=== PATIENT | male | born 2000 | race Two or more races ===

== ENCOUNTER 2024-04-11 08:45 | Outpatient (RCR) | payer MEDICAID, SELFPAY ==
--- NOTE | 2024-04-11 11:13 | PTNOTE_ITS ---
PT OP Initial Eval Patient Information Outpatient Physical Therapy Treatment Date: 04/11/24 Visit Reasons: BACK PAIN Medical Diagnosis: M54.32 Treatment Dx #1: Back Pain Start of Care: 04/11/24 Smoking Status Smoking Status: Never smoker Initial Assessment Subjective: Pt is a 23 y/o male reports of back and left LE radicular pain ~ 6 months ago. Pt denies of trauma or injury to the back. No imaging has been done thus far. Pt has limitation with standing, sitting, work duties, lifting, and performing recreational activities. Objective: L/S AROM: all motions are WFL Hip PROM: all motions are WFL Hip MMTs: grossly 4-/5 Palpation: TTP and hypomobile L3-L4 facet Assessment: Pt demonstrate back pain with mobility deficits leading to difficulty with ADLs. Pt will attempt physical therapy if pain persist Pt will be refer back to provider for further consultation. Short Term and Director Of Occupational Health Goals 1) Increase L/S AROM WNL in 6 wks to be able to perform chores 2) Decrease back pain to 2/10 in 6 wks to be able to sit and stand more than 30 mins 3) Increase core strength WFL in 6 wks to be able to perform recreational activities 4) Increase hip MMTs grossly to 4-/5 in 6 wks to be able to walk more than 30 mins 5) Indep with HEP Treatment Plan 1) Manual Therapy 2) Therapeutic Activities 3) Therapeutic Exercises 4) Modalities (ice, heat, traction) Frequency and Duration: 2 x wk for 6 wks Certification Dates: 04/11/24 to 07/12/24 Procedure Charges OP PT Eval Mod Complex 30 minutes: Yes
== END 2024-04-15 23:59 | disposition home or self-care (01) ==
LOC: CPTX 08:45
PROVIDERS: PCP Registered Nurse; Referring Provider Registered Nurse; Visit Provider Registered Nurse
DX: M54.9 Dorsalgia, unspecified (principal); M54.32 Sciatica, left side
CPT/HCPCS: 97162

== ENCOUNTER 2024-04-27 09:00 | Outpatient (RCR) | payer MEDICAID, SELFPAY ==
--- NOTE | 2024-04-18 11:28 | PT.ODAYNRPT ---
PT Outpatient Daily Note OP Daily Note Outpatient Physical Therapy Treatment Date: 04/18/24 Visit Reasons: Back pain Subjective: No pain to report at this time. Objective: Please see flow sheet for ther ex list. Assessment: L LE symptoms replicated with figure 4 stretch. Instructed pt with repeated lumbar extension L LE symptoms resolved. Pt encouraged to perform repeated lumbar extension for HEP. Plan: Assess response to HEP. Length of Time (minutes) of Treatment: 30 Minutes Procedure Charges Therapeutic Exercise 30 minutes: Yes
--- NOTE | 2024-04-20 10:55 | PT.ODAYNRPT ---
PT Outpatient Daily Note OP Daily Note Outpatient Physical Therapy Treatment Date: 04/20/24 Visit Reasons: Back pain Subjective: Pt's back pain is better. Pt notice less left LE pain lately. Objective: Please see flow chart for list of ther ex performed Assessment: tolerate exercises with minimal pain Plan: Continue with PT Length of Time (minutes) of Treatment: 30 Minutes Procedure Charges Therapeutic Exercise 30 minutes: Yes
--- NOTE | 2024-04-25 13:41 | PT.ODAYNRPT ---
PT Outpatient Daily Note OP Daily Note Outpatient Physical Therapy Treatment Date: 04/25/24 Visit Reasons: Back pain Subjective: Pt's back is better. Only concerns to report his when sometimes with running he notice back pain with intermittent pain down the left leg. Objective: Please see flow chart for list of ther ex performed Assessment: progress patient to more core exercises with good tolerance. nerve floss continues to help decrease referral pain down the legs Plan: Continue with PT Length of Time (minutes) of Treatment: 30 Minutes Procedure Charges Therapeutic Exercise 30 minutes: Yes
--- NOTE | 2024-04-27 09:33 | PT.ODS1RPT ---
PT OP Progress/Discharge Note Date of Service: 04/27/24 Progress Note/DC Note Progress Note/Discharge Note: DC Note Patient Information Visit Reasons: Back pain Medical Diagnosis: M54.32 Treatment Dx #1: Back Pain Service Discharge Date: 04/27/24 Status Subjective: Pt's back is a little better, however, continues to notice left LE pain. Pt has been able to resume ADLs, work duties, and ambulate with less limitation. Pt will like to stop physical therapy at this time and follow up with provider. Objective: L/S AROM: all motions are WNL Hip PROM: all motions are WNL Hip MMTs: grossly 4/5 Assessment: Pt demonstrate functional L/S mobility and strength, however, minimal changes with left radcular pain leading to difficulty with ADLs. Pt will no longer benefit from physical therapy due to minimal progress towards goals. Recommend lumbar spine MRI to help rule in/out nature of pain. Pt was instructed on HEP last session and educated to continue exercises to maintain overall mobility. Pt performed all exercises safely, thank you for your referrals. Plan: D/C home with HEP and follow up with MD VELA Recommend lumbar spine MRI Procedure Charges Therapeutic Exercise 30 minutes: Yes
== END 2024-05-16 23:59 | disposition home or self-care (01) ==
LOC: CPTX 09:00
PROVIDERS: PCP Registered Nurse; Referring Provider Registered Nurse; Visit Provider Registered Nurse
DX: M54.9 Dorsalgia, unspecified (principal); M79.605 Pain in left leg; M54.32 Sciatica, left side
CPT/HCPCS: 97110